=== PATIENT | female | born 1950 | race Two or more races ===

== ENCOUNTER → 2024-01-29 14:25 | Outpatient (REF) | payer MEDICARE, OTHER, SELFPAY | LOC: RAD 14:25 | PROVIDERS: ATTENDING PHYSICIAN Internal Medicine Rheumatology; FAMILY PHYSICIAN Family Medicine | DX: M15.9 Polyosteoarthritis, unspecified (principal) | CPT/HCPCS: 73130 ==

== ENCOUNTER → 2024-09-12 07:03 | Outpatient (REF) | payer MEDICARE, OTHER, SELFPAY | LOC: DHCBC/DCA 07:03 | PROVIDERS: ATTENDING PHYSICIAN Internal Medicine Cardiovascular Disease; FAMILY PHYSICIAN Family Medicine | DX: I48.0 Paroxysmal atrial fibrillation (principal); I34.0 Nonrheumatic mitral (valve) insufficiency; R06.09 Other forms of dyspnea | CPT/HCPCS: 78452; 93017; A9500; J2785 ==

== ENCOUNTER → 2024-11-10 10:11 | Outpatient (REF) | payer MEDICARE, OTHER, SELFPAY | LOC: RAD 10:11 | PROVIDERS: ATTENDING PHYSICIAN Family Medicine | DX: I65.29 Occlusion and stenosis of unspecified carotid artery (principal); I70.1 Atherosclerosis of renal artery; N28.1 Cyst of kidney, acquired; R09.89 Other specified symptoms and signs involving the circulatory and respiratory systems | CPT/HCPCS: 76775; 93880 ==

== ENCOUNTER → 2025-03-17 08:46 | Outpatient (REF) | payer MEDICARE, OTHER, SELFPAY | LOC: RAD 08:46 | PROVIDERS: ATTENDING PHYSICIAN Internal Medicine Critical Care Medicine; FAMILY PHYSICIAN Family Medicine | DX: R06.02 Shortness of breath (principal); I27.20 Pulmonary hypertension, unspecified | CPT/HCPCS: 71275; Q9967 ==

== ENCOUNTER 2025-04-21 06:22 | Day surgery (SDC) | payer MEDICARE, OTHER, SELFPAY | END 2025-04-21 11:15 | disposition home or self-care (01) | LOC: GI 06:22 | PROVIDERS: ATTENDING PHYSICIAN Student in an Organized Health Care Education/Training Program | DX: K20.0 Eosinophilic esophagitis (principal); K22.89 Other specified disease of esophagus; K22.2 Esophageal obstruction; R13.14 Dysphagia, pharyngoesophageal phase; K44.9 Diaphragmatic hernia without obstruction or gangrene; K31.7 Polyp of stomach and duodenum; D13.2 Benign neoplasm of duodenum | CPT/HCPCS: 43251; 43249; 43239; 88305 ==

== ENCOUNTER 2025-06-14 06:21 | Day surgery (SDC) | payer MEDICARE, OTHER, SELFPAY | END 2025-06-14 13:38 | disposition home or self-care (01) | LOC: GI 06:21 | PROVIDERS: ATTENDING PHYSICIAN Student in an Organized Health Care Education/Training Program | DX: K22.2 Esophageal obstruction (principal); K44.9 Diaphragmatic hernia without obstruction or gangrene; K31.7 Polyp of stomach and duodenum; K31.89 Other diseases of stomach and duodenum | CPT/HCPCS: 43249; 43239; 88305 ==